=== PATIENT | female | born 1960 | race African-American/Black ===

== ENCOUNTER 2018-03-17 14:35 | Outpatient (CLI) | payer OTHER ==
--- NOTE | 2018-03-17 16:03 | RAD ---
LUMBAR SPINE SERIES TWO VIEWS: 03/17/18 HISTORY: Disability evaluation. COMPARISON: 01/25/16 study. There is a severe scoliotic change convexed to the left. Vertebral bodies appear to be normal in heig ht. Suggestion of some disc narrowing at the L2-3 and L3-4 level. Overall appearance is fairly unchan ged since the prior examination. Degenerative facet changes are noted. IMPRESSION: Severe scoliosis. Stable exam. POS: SUGEY
== END 2018-03-17 14:36 | disposition home or self-care (01) ==
LOC: BICRAD 14:35
PROVIDERS: ATTEND Internal Medicine
DX: Z02.71 Encounter for disability determination (principal); M41.9 Scoliosis, unspecified
CPT/HCPCS: 72100

== ENCOUNTER 2020-03-06 00:20 | Emergency (ER) | payer SELFPAY ==
[2020-03-06] MEDS ORDERED: Ketorolac Tromethamine 30 MG/ML VIAL ONE (02:22)
== END 2020-03-06 02:33 | disposition home or self-care (01) ==
LOC: ERS 00:20
DX: M77.11 Lateral epicondylitis, right elbow (principal); M19.90 Unspecified osteoarthritis, unspecified site; J45.909 Unspecified asthma, uncomplicated; F31.9 Bipolar disorder, unspecified; F17.210 Nicotine dependence, cigarettes, uncomplicated
CPT/HCPCS: 96372; 99283; J1885

== ENCOUNTER 2020-03-08 10:23 | Emergency (ER) | payer MEDICAID, SELFPAY ==
[2020-03-08] MEDS ORDERED: Ketorolac Tromethamine 30 MG/ML VIAL ONE (12:25)
--- NOTE | 2020-03-08 13:17 | RAD ---
EXAM: Chest PA and lateral: HISTORY: Chest pain. Shortness of breath COMPARISON: 04/08/2015 FINDINGS: Lung rivera are clear. Vascular markings are normal. Mild interstitial prominence appears stable. Heart and mediastinum appear unremarkable. Scoliotic curvature of the thoracolumbar spine with degenerative change again noted. IMPRESSION: No acute process.
== END 2020-03-08 13:42 | disposition home or self-care (01) ==
LOC: ERS 10:23
DX: M54.12 Radiculopathy, cervical region (principal); M19.90 Unspecified osteoarthritis, unspecified site; J45.909 Unspecified asthma, uncomplicated; F31.9 Bipolar disorder, unspecified; F17.210 Nicotine dependence, cigarettes, uncomplicated
CPT/HCPCS: 71046; 96372; J1885

== ENCOUNTER 2021-11-12 17:19 | Emergency (ER) | payer OTHER ==
[2021-11-12] MEDS ORDERED: Lidocaine Viscous Sol 2% 15 ml UD Cup ONE (17:34)
[2021-11-12] MEDS ORDERED: Lidocaine 1% MPF 2 ML VIAL ONE (18:02)
== END 2021-11-12 18:28 | disposition home or self-care (01) ==
LOC: ERS 17:19
DX: K04.7 Periapical abscess without sinus (principal); M25.572 Pain in left ankle and joints of left foot; M19.90 Unspecified osteoarthritis, unspecified site; J45.909 Unspecified asthma, uncomplicated; F17.210 Nicotine dependence, cigarettes, uncomplicated
CPT/HCPCS: 41800

== ENCOUNTER 2022-05-25 05:39 | Inpatient (IN) | payer OTHER ==
[2022-05-25] MEDS ORDERED: Ipratropium/Albuterol 3 ML NEB ONE ×2 (06:06→06:25)
[2022-05-25] MEDS ORDERED: methylPREDNISolone Sod Succ/PF 125 MG/2 ML VIAL ONE (06:06)
[2022-05-25] MEDS ORDERED: Magnesium 2 GM/50 ML BAG (IN WATER) ONE (06:26)
[2022-05-25] MEDS ORDERED: cefTRIAXone\\ROCEPHIN 1 GM VIAL ONE (07:31)
[2022-05-25] MEDS ORDERED: Azithromycin 500 MG VIAL ONE (07:58)
[2022-05-25] MEDS ORDERED: Ipratropium Bromide 2.5 ml Neb ONE (08:01)
[2022-05-25 08:12] LABS: Bacteria/HPF None Seen HPF (None Seen); Bilirubin Negative (Negative); Blood, Urine Negative (Negative); Clarity Clear (Clear); Glucose, Urine (Dipstick) Normal (Negative); Ketone, Urine Negative (Negative); Leukocyte 25 Leu/uL (Negative); Nitrite Negative (Negative); Protein, Urine (Dipstick) Negative (Neg-Trace); RBC/HPF 0-3 HPF (0-3); Specific Gravity, Urine 1.012 (1.002-1.036); Urobilinogen Normal mg/dL (Less than 2); WBC/HPF 0-3 HPF (0-3); pH, Urine 5.5 (5.0-9.0)
[2022-05-25 08:17] LABS: #Basophils 0.1 thou/uL (0.0-0.2); #Eosinphils 0.6 thou/uL (0.0-0.7); #Monocytes 0.2 thou/uL (0.11-0.59); #Neutrophils 5.2 thou/uL (1.40-6.50); %Basophils 1.2 % (0.0-1.0); %Eosinophils 8.9 % (0.0-10.0); %Lymphocytes 14.1 % (21.0-51.0); %Monocytes 2.6 % (0.0-10.0); %Neutrophils 73.2 % (42.0-75.0); Hemoglobin 15.3 g/dL (12.0-16.0); Mean Corpuscular Hemoglobin 34.2 pg (27.0-31.0); Mean Platelet Volume 7.6 fL (7.4-10.4); Platelet Count 174 10x3/uL (130-400); RBC Distribution Width 12.3 % (11.5-14.5); Red Blood Cell (RBC) Count 4.46 mill/uL (4.20-5.40)
[2022-05-25 08:34] LABS: SARS-CoV-2 NAA Rapid Test Not Detected (NotDetected)
[2022-05-25 09:01] LABS: ALT (SGPT) 18 U/L (8-55); AST (SGOT) 24 U/L (5-34); Albumin 3.2 g/dL (3.4-4.8); Alcohol Less than 10 mg/dL (Less than 10); Alkaline Phosphatase 110 U/L (40-110); Anion Gap 15 mmol/L (10-20); BUN (Urea Nitrogen) 7 mg/dL (9.8-20.1); Bilirubin, Total 0.3 mg/dL (0.2-1.2); Calc. Creatinine Clearance 0 mL/min (70-130); Calcium 8.1 mg/dL (7.8-10.44); Carbon Dioxide 20 mmol/L (23-31); Chloride 108 mmol/L (98-107); Estimated GFR 87; Globulin 4.8 g/dL (2.4-3.5); Glucose 126 mg/dL (80-115); Lipase 9 U/L (8-78); Potassium 3.9 mmol/L (3.5-5.1); Sodium 139 mmol/L (136-145)
[2022-05-25] MEDS ORDERED: Ondansetron ODT 4 MG TAB SL PRN (12:30)
[2022-05-25] MEDS ORDERED: Ondansetron PF 4 MG/2 ML Vial IVP PRN (12:30)
[2022-05-25 12:32] VITALS: BMI 28.8
[2022-05-25] MEDS ORDERED: Metoclopramide HCl 10 MG/2 ML VIAL IVP PRN (12:50)
[2022-05-25] MEDS: Ipratropium/Albuterol 3 ML NEB NEB SCH ×3 (13:43→23:28)
[2022-05-25 13:45] LABS: Troponin I Less than 0.010 ng/mL (< 0.028)
[2022-05-25] MEDS ORDERED: FLU VACC QS2022-23(6MOS UP)/PF 60 MCG/0.5 ML SYRINGE IM ONE (15:30)
[2022-05-25 15:51] LABS: Amphetamine Not Detected (NotDetected); Barbiturates Screen Not Detected (NotDetected); Benzodiazepine Screen Not Detected (NotDetected); Cocaine Metabolite Screen Detected (NotDetected); Methadone Not Detected (NotDetected); Methamphetamine Not Detected (NotDetected); Opiate Screen Not Detected (NotDetected); Oxycodone Screen Not Detected (NotDetected); Phencyclidine (PCP) Not Detected (NotDetected); THC/Cannabinoid Screen Not Detected (NotDetected); Tricyclic Screen Not Detected (NotDetected)
[2022-05-25] MEDS: Nicotine 7 MG PATCH TD SCH (16:21)
[2022-05-25 16:39] LABS: Troponin I Less than 0.010 ng/mL (< 0.028)
[2022-05-25] MEDS: methylPREDNISolone Sod Succ 40 MG VIAL IVP SCH ×2 (17:55→23:07)
[2022-05-25] MEDS: Arformoterol 15 MCG/2 ML NEB NEB SCH (18:16)
[2022-05-25] MEDS ORDERED: Benzonatate 100 MG CAP PO PRN (22:47)
[2022-05-25] MEDS ORDERED: Cepastat Lozenges 1 LOZ PO PRN (22:47)
[2022-05-26] MEDS: Acetaminophen 325 MG TAB PO PRN ×3 (03:56→15:17)
[2022-05-26 05:04] LABS: #Monocytes 0.2 thou/uL (0.11-0.59); %Eosinophils 0.1 % (0.0-10.0); %Lymphocytes 12.4 % (21.0-51.0); %Monocytes 2.6 % (0.0-10.0); Hemoglobin 13.4 g/dL (12.0-16.0); Mean Corpuscular HGB CONC 32.7 g/dL (32.0-36.0); Mean Corpuscular Hemoglobin 33.6 pg (27.0-31.0); Mean Platelet Volume 7.9 fL (7.4-10.4); Platelet Count 189 10x3/uL (130-400); RBC Distribution Width 12.1 % (11.5-14.5); Red Blood Cell (RBC) Count 3.97 mill/uL (4.20-5.40); White Blood Cell (WBC) Count 8.2 10x3/uL (4.8-10.8)
[2022-05-26 05:23] LABS: Anion Gap 11 mmol/L (10-20); BUN (Urea Nitrogen) 12 mg/dL (9.8-20.1); Calc. Creatinine Clearance 94 mL/min (70-130); Carbon Dioxide 23 mmol/L (23-31); Chloride 108 mmol/L (98-107); Estimated GFR 85; Glucose 169 mg/dL (80-115); Potassium 3.9 mmol/L (3.5-5.1); Sodium 138 mmol/L (136-145)
[2022-05-26] MEDS: cefTRIAXone\\ROCEPHIN 1 GM in Sodium Chloride 0.9% 100 ML IVPB SCH (06:04)
[2022-05-26] MEDS: methylPREDNISolone Sod Succ 40 MG VIAL IVP SCH ×3 (06:04→18:27)
[2022-05-26] MEDS: Ipratropium/Albuterol 3 ML NEB NEB SCH ×4 (07:13→23:31)
[2022-05-26] MEDS: Arformoterol 15 MCG/2 ML NEB NEB SCH ×2 (07:13→18:39)
[2022-05-26] MEDS: Azithromycin 500 MG in Sodium Chloride 0.9% 250 ML 250 ML IVPB SCH (08:07)
[2022-05-26] MEDS: Nicotine 7 MG PATCH TD SCH ×2 (14:22→16:13)
[2022-05-26] MEDS ORDERED: Acetaminophen 325 MG TAB PO SCH (15:15)
[2022-05-27] MEDS: Ipratropium/Albuterol 3 ML NEB NEB SCH ×5 (07:03→22:41)
[2022-05-27] MEDS: Arformoterol 15 MCG/2 ML NEB NEB SCH (07:03)
[2022-05-27 08:03] LABS: #Lymphocytes 2.6 thou/uL (1.20-3.40); #Neutrophils 10.6 thou/uL (1.40-6.50); %Basophils 0.2 % (0.0-1.0); %Eosinophils 0.1 % (0.0-10.0); %Lymphocytes 18.5 % (21.0-51.0); %Monocytes 6.9 % (0.0-10.0); %Neutrophils 74.3 % (42.0-75.0); Hemoglobin 14.6 g/dL (12.0-16.0); Mean Corpuscular HGB CONC 32.4 g/dL (32.0-36.0); Mean Corpuscular Hemoglobin 33.8 pg (27.0-31.0); Mean Platelet Volume 7.8 fL (7.4-10.4); Platelet Count 206 10x3/uL (130-400); RBC Distribution Width 12.5 % (11.5-14.5); Red Blood Cell (RBC) Count 4.33 mill/uL (4.20-5.40); White Blood Cell (WBC) Count 14.2 10x3/uL (4.8-10.8)
[2022-05-27 08:21] LABS: Anion Gap 11 mmol/L (10-20); BUN (Urea Nitrogen) 12 mg/dL (9.8-20.1); Calc. Creatinine Clearance 98 mL/min (70-130); Calcium 9.3 mg/dL (7.8-10.44); Carbon Dioxide 24 mmol/L (23-31); Chloride 108 mmol/L (98-107); Estimated GFR 89; Glucose 104 mg/dL (80-115); Sodium 139 mmol/L (136-145)
[2022-05-27] MEDS: Guaifenesin DM 100-10/5 ML UDCUP PO PRN ×2 (10:05→16:45)
[2022-05-27] MEDS: predniSONE 20 MG TAB PO SCH (10:06)
[2022-05-27] MEDS: cefTRIAXone\\ROCEPHIN 1 GM in Sodium Chloride 0.9% 100 ML IVPB SCH (10:07)
[2022-05-27] MEDS ORDERED: Benzonatate 100 MG CAP PO PRN (10:58)
[2022-05-27] MEDS ORDERED: Iopamidol-370 76% 500 ML 1 ML ONE (11:31)
[2022-05-27] MEDS: Azithromycin 500 MG in Sodium Chloride 0.9% 250 ML 250 ML IVPB SCH (13:57)
[2022-05-27] MEDS: Benzonatate 100 MG CAP PO SCH ×2 (15:16→20:27)
[2022-05-27] MEDS: Nicotine 7 MG PATCH TD SCH (16:43)
[2022-05-27] MEDS: Mometasone 200 MCG/Formoterol 5 MCG 120 PUFF INHALER INH SCH (18:28)
[2022-05-28] MEDS: Ipratropium/Albuterol 3 ML NEB NEB SCH ×3 (01:50→10:19)
[2022-05-28] MEDS: Mometasone 200 MCG/Formoterol 5 MCG 120 PUFF INHALER INH SCH (06:27)
[2022-05-28] MEDS: cefTRIAXone\\ROCEPHIN 1 GM in Sodium Chloride 0.9% 100 ML IVPB SCH (08:24)
[2022-05-28] MEDS: predniSONE 20 MG TAB PO SCH (08:25)
[2022-05-28] MEDS: Benzonatate 100 MG CAP PO SCH (08:26)
[2022-05-28 08:52] VITALS: BP 115/57; TEMP 97.8
== END 2022-05-28 11:35 | disposition home or self-care (01) | DRG 202 ==
LOC: ERS 05:39 → 2SW 10:14
PROVIDERS: ADMIT Family Medicine; ATTEND Family Medicine
DX: J45.901 Unspecified asthma with (acute) exacerbation (principal); J18.9 Pneumonia, unspecified organism; I47.1 Supraventricular tachycardia; Z20.822 Contact with and (suspected) exposure to COVID-19; F17.210 Nicotine dependence, cigarettes, uncomplicated; R94.31 Abnormal electrocardiogram [ECG] [EKG]; F14.10 Cocaine abuse, uncomplicated; F31.9 Bipolar disorder, unspecified; F20.9 Schizophrenia, unspecified; G89.29 Other chronic pain; M79.606 Pain in leg, unspecified; R59.0 Localized enlarged lymph nodes; M54.2 Cervicalgia; Z91.51 Personal history of suicidal behavior; Z71.51 Drug abuse counseling and surveillance of drug abuser
CPT/HCPCS: 36415; 70450; 71045; 71275; 80048; 80053; 80306; 80307; 81003; 81015; 83605; 83690; 83880; 84484; 85025; 87040; 87086; 93005; 93306; 94640; 94644; 96365; 96367; 96375; J0456; J0696; J1650; J2920; J2930; J3475; J3490; J7050; J7512; J7611; J7620; Q9967

== ENCOUNTER 2023-05-08 13:44 | Emergency (ER) | payer OTHER ==
[2023-05-08] MEDS ORDERED: Gabapentin 300 MG CAP ONE (14:47)
== END 2023-05-08 14:56 | disposition home or self-care (01) ==
LOC: ERS 13:44
DX: B02.9 Zoster without complications (principal); F17.210 Nicotine dependence, cigarettes, uncomplicated
CPT/HCPCS: 99282

== ENCOUNTER 2024-04-05 16:21 | Emergency (ER) | payer MEDICARE, OTHER ==
[2024-04-05] MEDS ORDERED: Ibuprofen 200 MG TAB ONE (17:54)
[2024-04-05] MEDS ORDERED: Acetaminophen 500 MG TAB ONE (17:54)
[2024-04-05 18:02] LABS: Amphetamine Not Detected (NotDetected); Barbiturates Screen Not Detected (NotDetected); Benzodiazepine Screen Not Detected (NotDetected); Cocaine Metabolite Screen Detected (NotDetected); Methadone Not Detected (NotDetected); Methamphetamine Not Detected (NotDetected); Opiate Screen Not Detected (NotDetected); Oxycodone Screen Not Detected (NotDetected); Phencyclidine (PCP) Not Detected (NotDetected); THC/Cannabinoid Screen Not Detected (NotDetected); Tricyclic Screen Not Detected (NotDetected)
[2024-04-05 18:02] LABS: #Basophils Less than 0.03 10x3/uL (0.0-0.2); %Basophils 0.4 % (0.0-1.0); %Eosinophils 0.8 % (0.0-10.0); %Lymphocytes 39.1 % (21.0-51.0); %Neutrophils 52.5 % (42.0-75.0); Hematocrit 39.4 % (36.0-47.0); Hemoglobin 13.1 g/dL (12.0-16.0); Mean Corpuscular HGB CONC 33.2 g/dL (32.0-36.0); Mean Corpuscular Hemoglobin 33.2 pg (27.0-31.0); Mean Platelet Volume 9.6 fL (7.4-10.4); Platelet Count 178 10x3/uL (130-400); Red Blood Cell (RBC) Count 3.94 mill/uL (4.20-5.40)
[2024-04-05 18:27] LABS: ALT (SGPT) 21 U/L (8-55); AST (SGOT) 25 U/L (5-34); Albumin 2.8 g/dL (3.4-4.8); Alkaline Phosphatase 143 U/L (40-110); Anion Gap 10 mmol/L (10-20); BUN (Urea Nitrogen) 13 mg/dL (9.8-20.1); Bilirubin, Total 0.3 mg/dL (0.2-1.2); Calc. Creatinine Clearance 0 mL/min (70-130); Calcium 8.8 mg/dL (7.8-10.44); Carbon Dioxide 24 mmol/L (23-31); Chloride 106 mmol/L (98-107); Estimated GFR 70; Globulin 4.5 g/dL (2.4-3.5); Glucose 91 mg/dL (80-115); Potassium 3.4 mmol/L (3.5-5.1); Protein, Total 7.3 g/dL (5.8-8.1); Sodium 137 mmol/L (136-145)
[2024-04-05 18:30] LABS: Troponin I Less than 0.010 ng/mL (< 0.028)
== END 2024-04-05 19:45 | disposition home or self-care (01) ==
LOC: ERS 16:21
DX: R60.0 Localized edema (principal); M79.662 Pain in left lower leg; M79.661 Pain in right lower leg; F14.10 Cocaine abuse, uncomplicated; F17.210 Nicotine dependence, cigarettes, uncomplicated; R03.0 Elevated blood-pressure reading, without diagnosis of hypertension
CPT/HCPCS: 36415; 80053; 80306; 83880; 84484; 85025; 93005; 93970

== ENCOUNTER 2024-11-22 06:38 | Emergency (ER) | payer OTHER, MEDICAID ==
[2024-11-22] MEDS ORDERED: HYDROcodone/Acetaminophen 5/325 mg Tablet ONE (07:01)
[2024-11-22 07:12] LABS: #Basophils Less than 0.03 10x3/uL (0.0-0.2); #Eosinophils Less than 0.03 10x3/uL (0.0-0.7); #Monocytes 0.88 10x3/uL (0.11-0.59); #Neutrophils 5.68 10x3/uL (1.40-6.50); %Basophils 0.1 % (0.0-1.0); %Eosinophils 0.2 % (0.0-10.0); %Lymphocytes 19.5 % (21.0-51.0); %Monocytes 10.7 % (0.0-10.0); %Neutrophils 69.1 % (42.0-75.0); Hematocrit 44.0 % (36.0-47.0); Hemoglobin 14.6 g/dL (12.0-16.0); Mean Corpuscular Hemoglobin 33.5 pg (27.0-31.0); Mean Corpuscular Volume 100.9 fL (78.0-98.0); Platelet Count 196 10x3/uL (130-400); Red Blood Cell (RBC) Count 4.36 mill/uL (4.20-5.40); White Blood Cell (WBC) Count 8.22 10x3/uL (4.8-10.8)
[2024-11-22 07:31] LABS: ALT (SGPT) 15 U/L (Less than 34); AST (SGOT) 21 U/L (11-34); Albumin 2.8 g/dL (3.1-4.5); Alkaline Phosphatase 127 U/L (40-110); Anion Gap 12 mmol/L (10-20); BUN (Urea Nitrogen) 7 mg/dL (9.8-20.1); Bilirubin, Total 0.7 mg/dL (0.3-1.2); Calc. Creatinine Clearance 0 mL/min (70-130); Calcium 8.7 mg/dL (7.8-10.44); Carbon Dioxide 24 mmol/L (23-31); Chloride 104 mmol/L (98-107); Globulin 5.4 g/dL (2.4-3.5); Glucose 111 mg/dL (80-115); Potassium 4.1 mmol/L (3.5-5.1); Sodium 136 mmol/L (136-145)
== END 2024-11-22 08:54 | disposition home or self-care (01) ==
LOC: ERS 06:38
DX: M25.462 Effusion, left knee (principal); F17.210 Nicotine dependence, cigarettes, uncomplicated
CPT/HCPCS: 36415; 80053; 85025